=== PATIENT | male | born 1990 | race Two or more races ===

== ENCOUNTER 2018-02-21 15:46 | Emergency (ER) | payer SELFPAY ==
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
== END 2018-02-21 17:12 | disposition home or self-care (01) ==
LOC: JP.ED 15:46
DX: S01.511A Laceration without foreign body of lip, initial encounter (principal); S01.512A Laceration without foreign body of oral cavity, initial encounter; W22.8XXA Striking against or struck by other objects, initial encounter
CPT/HCPCS: 12011; 99283-25